=== PATIENT | male | born 1985 | race African-American/Black ===

== ENCOUNTER 2017-04-08 11:00 | Emergency (ER) | payer OTHER ==
[~2017-04-08] VITALS: Ht 165.1 cm; Wt 63.5 kg
[~2017-04-08 11:00] MED LIST: PREDNISONE10 MG PO; VISTARIL25 MG PO; ZOFRAN4 M1 SL
[2017-04-08 11:11] VITALS: BP 145/93
--- NOTE | 2017-04-08 11:39 | RADIOLOGY REPORT ---
EXAMINATION: XR FINGER, LEFT CLINICAL INFORMATION: Evaluate for pain. Swelling third finger COMPARISON: X-ray right hand dated 06/30/2013 TECHNIQUE: Three views of the left third finger. FINDINGS: Normal bony mineralization. No evidence of acute fracture or dislocation. No bony destructive changes or abnormal lucency identified. Soft tissue swelling third finger. Joint spaces are fairly well preserved. IMPRESSION: Soft tissue swelling third finger. No acute osseous abnormality.
--- NOTE | 2017-04-08 11:46 | ED HAND/WRIST INJURY COMPLAINT ---
History of Present Illness General Chief Complaint: Hand or Wrist Injury Stated Complaint: L MIDDLE FINGER SWELLING Source: patient Exam Limitations: no limitations Vital Signs & Intake/Output Vital Signs & Intake/Output Vital Signs Date Time Temp Pulse Resp B/P B/P Pulse O2 O2 Flow FiO2 Mean Ox Delivery Rate 04/08 1111 98.5 93 16 145/93 96 Room Air Allergies Coded Allergies: pineapple (UNKNOWN 04/08/17) Reconcile Medications Ibuprofen 800 MG TABLET 1 TAB PO TID pain Triage Note: 31 Y/O MALE C/O L 3RD FINGER PAIN S/P "JAMMING" ON STAIRS WHILE TRYING TO BREAK A FALL; OCCURRED 3 DAYS AGO. STATES HE THOUGHT THE SWELLING WOULD IMPROVE BUT HASNT. SWELLING NOTED AROUND JOINT. Triage Nurses Notes Reviewed? yes Occurred: just prior to arrival Duration: day(s): (few), constant, continues in ED Timing: recent history Injury Environment: home Severity: moderate, severe Pain/Injury Location: Left: 3rd finger. No Modifying Factors: none HPI: 31-year-old male comes into emergency room for further evaluation of left third finger pain. Patient reports that on Saturday he fell going up the steps onto his finger. Sharp pain since then. Swelling. Limited range of motion. Denies any trauma or injury anywhere else. Denies any other system symptoms. (IFRAH KERR) Past History Travel History Traveled to [place] past 21 day No Medical History Any Pertinent Medical History? see below for history Neurological: NONE EENT: NONE Cardiovascular: NONE Respiratory: NONE Gastrointestinal: NONE Hepatic: NONE Renal: NONE Musculoskeletal: NONE Psychiatric: NONE Endocrine: NONE Blood Disorders: NONE Cancer(s): NONE MANIFOLD BUILDER/Reproductive: NONE Surgical History Surgical History: non-contributory Psychosocial History What is your primary language Polish Tobacco Use: Current Daily Use Daily Tobacco Use Amount/Type: => 5 Cigarettes daily Family History Hx Contributory? No (IFRAH KERR) Review of Systems Review of Systems Constitutional: Reports: no symptoms. EENTM: Reports: no symptoms. Respiratory: Reports: no symptoms. Cardiovascular: Reports: no symptoms. GI: Reports: no symptoms. Genitourinary: Reports: no symptoms. Musculoskeletal: Reports: see HPI. Skin: Reports: no symptoms. Neurological/Psychological: Reports: no symptoms. Hematologic/Endocrine: Reports: no symptoms. Immunologic/Allergic: Reports: no symptoms. All Other Systems: Reviewed and Negative (IFRAH KERR) Physical Exam Physical Exam General Appearance: well developed/nourished, mild distress Head: atraumatic Eyes: Bilateral: normal appearance. Ears, Nose, Throat: normal ENT inspection, hearing grossly normal Neck: normal inspection Cardiovascular/Respiratory: no respiratory distress Back: normal inspection Hand Left: limited range of motion, swelling, tender, 3rd finger Hand Right: normal inspection Neurologic/Tendon: normal sensation Skin: intact, normal color, warm/dry Lymphatic: no anterior cervical nazia (IFRAH KERR) Progress Differential Diagnosis: cellulitis, contusion, compartment syndrome, dislocation , felon, fracture, septic arthritis, sprain, tenosynovitis Plan of Care: Clinically looks well. Nontoxic-appearing. No evidence of acute fracture. Diagnostic Imaging: Viewed by Me: Radiology Read. Discussed w/RAD: Radiology Read. Radiology Impression: SERVICE DATE: 04/08/17 EXAM TYPE: RAD - XRY-FINGERS , LEFT EXAMINATION: XR FINGER, LEFT CLINICAL INFORMATION: Evaluate for pain. Swelling third finger COMPARISON: X-ray right hand dated 06/30/2013 TECHNIQUE: Three views of the left third finger. FINDINGS: Normal bony mineralization. No evidence of acute fracture or dislocation. No bony destructive changes or abnormal lucency identified. Soft tissue swelling third finger. Joint spaces are fairly well preserved. IMPRESSION: Soft tissue swelling third finger. No acute osseous abnormality. DICTATED BY: EVELINA DE LOS SANTOS MD DATE/TIME DICTATED:04/08/17 1135 (IFRAH KERR) Departure Departure Disposition: HOME OR SELF CARE Condition: Stable Clinical Impression Primary Impression: Finger sprain Referrals: PATIENT HAS NO PRIMARY CARE DR (PCP/Family) LASHON ROSARIO,SHAR Armstrong Additional Instructions: Take ibuprofen as prescribed. Ice. Rest. Follow-up with orthopedic doctor. Return if any concerns worsening symptoms. Please go over all results of today's visit with your primary care doctor. Contact your primary care doctor to let them know you were here in the emergency room. There may be nonspecific findings which may not be related to your visit today here in the emergency room but may require further evaluation and chronic monitoring by your primary care doctor. If you had a laceration today the chance of foreign body always remains. You should follow-up with your primary care doctor for recheck in 3-5 days for a wound check. If you had an x-ray done there is a chance that a fracture could have been missed on initial read and you should follow-up with your primary care doctor for repeat x-rays if symptoms persist. If your blood pressure was elevated here in the emergency room please have rechecked by her primary care doctor within the next 48 hours by your primary care doctor. If you were prescribed a narcotic here in the emergency room or any type of controlled substances you're not allowed to drive while taking this medication or operate any type of heavy machinery. Narcotics can make you feel lightheaded dizziness nausea and can cause constipation. You may need to cotton picker operator a stool softener. Thank you for choosing [facility] emergency room. Please return to the emergency room immediately if you have any other concerns worsening of symptoms. Departure Forms: Customer Survey General Discharge Information Prescriptions: Current Visit Scripts Ibuprofen 1 TAB PO TID #20 TAB (IFRAH KERR) PA/MILD DISABILITIES TEACHER Co-Sign Statement Statement: ED Attending supervision documentation- [] I saw and evaluated the patient. I have also reviewed all the pertinent lab results and diagnostic results. I agree with the findings and the plan of care as documented in the PA's/MILD DISABILITIES TEACHER's documentation. [x] I have reviewed the ED Record and agree with the PA's/MILD DISABILITIES TEACHER's documentation. [] Additions or exceptions (if any) to the PAs/MILD DISABILITIES TEACHER's note and plan are summarized below: [] (KESHAWN JEWELL DO) Procedures Splinting Location: left third finger Pre-Made Type: finger splint Splint Applied By: splint applied by me Pre-Proc Neuro Vasc Exam: normal Post-Proc Neuro Vasc Exam: normal (IFRAH KERR)
[2017-04-08] MEDS ORDERED: IBUPROFEN800 M1 PO (11:47)
== END 2017-04-08 12:18 ==
LOC: ERH 11:00
DX: S63.613A Unspecified sprain of left middle finger, initial encounter (principal); W19.XXXA Unspecified fall, initial encounter; Y93.9 Activity, unspecified; Y92.9 Unspecified place or not applicable
CPT/HCPCS: 73140-LT